=== PATIENT | male | born 1945 | race Caucasian/White ===

== ENCOUNTER 2022-12-09 16:40 | Emergency (ER) | payer MEDICARE ==
[2022-12-09 17:30] LABS: BASOPHILS ABSOLUTE AUTO 0.06 K/uL (0.00-0.10); BASOPHILS PERCENT AUTO 0.7 % (0.1-1.3); EOSINOPHILS ABSOLUTE AUTO 0.03 K/uL (0.00-0.40); EOSINOPHILS PERCENT AUTO 0.3 % (0.0-5.4); HEMATOCRIT 38.2 % (38.4-49.7); HEMOGLOBIN 13.2 g/dL (12.9-16.9); IMMATURE GRAN ABSOLUTE AUTO 0.04 K/uL (0.00-0.23); IMMATURE GRAN PERCENT AUTO 0.4 % (0.0-0.7); LYMPHOCYTES ABSOLUTE AUTO 1.78 K/uL (0.8-3.3); LYMPHOCYTES PERCENT AUTO 19.8 % (11.4-47.7); MEAN CORPUSCULAR HEMOGLOBIN 33.2 pg (31.6-35.5); MEAN CORPUSCULAR HGB CONC 34.6 g/dL (31.6-35.5); MONOCYTES ABSOLUTE AUTO 0.67 K/uL (0.20-0.90); MONOCYTES PERCENT AUTO 7.5 % (3.3-12.6); NEUTROPHILS PERCENT AUTO 71.3 % (40.0-78.1); PLATELET COUNT,PLT 149 K/uL (130-375); RED BLOOD CELL COUNT 3.98 M/uL (4.14-5.76)
[2022-12-09 17:47] LABS: ANION GAP 9.8 mmol/L (5.0-14.0); CALCIUM 8.8 mg/dL (8.5-10.1); CREATININE 1.1 mg/dL (0.8-1.3); EST CRCL DRUG DOSING (CG) 61.54 mL/min; POTASSIUM,K 4.8 mmol/L (3.6-5.2)
[2022-12-09] MEDS ORDERED: Acetaminophen 500 MG Tab PO ONE (18:36)
== END 2022-12-09 19:16 | disposition home or self-care (01) ==
LOC: JP.ED 16:40
DX: S02.31XA Fracture of orbital floor, right side, initial encounter for closed fracture (principal); S02.40EA Zygomatic fracture, right side, initial encounter for closed fracture; S01.81XA Laceration without foreign body of other part of head, initial encounter; S40.021A Contusion of right upper arm, initial encounter; I10 Essential (primary) hypertension; Z86.16 Personal history of COVID-19; Z91.048 Other nonmedicinal substance allergy status; Z88.0 Allergy status to penicillin; Z91.013 Allergy to seafood; W18.30XA Fall on same level, unspecified, initial encounter; Y92.009 Unspecified place in unspecified non-institutional (private) residence as the place of occurrence of the external cause
CPT/HCPCS: 12011; 36415; 70450; 70486; 73060; 80048; 85025; 99284; A9270

== ENCOUNTER 2022-12-23 16:31 | Emergency (ER) | payer MEDICARE ==
[2022-12-23] MEDS ORDERED: Acetaminophen/oxyCODONE 325-10 MG Tab PO PRN (18:10)
== END 2022-12-23 20:03 | disposition home or self-care (01) ==
LOC: JP.ED 16:31
DX: S70.02XA Contusion of left hip, initial encounter (principal); M16.12 Unilateral primary osteoarthritis, left hip; I10 Essential (primary) hypertension; Z79.899 Other long term (current) drug therapy; Z91.09 Other allergy status, other than to drugs and biological substances; Z79.82 Long term (current) use of aspirin
CPT/HCPCS: 72192; 76377; 99283; A9270